=== PATIENT | male | born 1960 | race Caucasian/White ===

== ENCOUNTER → 2018-03-15 | Outpatient (REF) | payer OTHER ==
[2018-03-15 15:58] LABS: C REACTIVE PROTEIN QUANTITATIV 0.64 MG/DL (0.00-0.30)
[2018-03-15 15:58] LABS: RHEUMATOID FACTOR QUANT < 10.0 IU/ML (<15.0)
[2018-03-15 17:26] LABS: ERYTHROCYTE SEDIMENTATION RATE 6 mm/hr (0-20)
[2018-03-25 00:10] LABS: HLA-B27 Negative (.)
== END ==
LOC: M LABDRAW1 10:00
DX: M47.896 Other spondylosis, lumbar region (principal)

== ENCOUNTER → 2020-02-04 | Outpatient (CLI) | payer OTHER ==
[~2020-02-04] MED LIST: ATOR40TA75 PO; DIGO0.253 PO; ECOT81TA5 PO; LISI2.5T2 PO; LOPR1TAB7 PO; NITR0.4S14 SL; NORC1TAB7 PO; SPIR-10 PO; XARE20TA PO
== END ==
LOC: M LABSMTC 08:06
PROVIDERS: ATTEND Anesthesiology
DX: Z01.818 Encounter for other preprocedural examination (principal); Z11.59 Encounter for screening for other viral diseases
CPT/HCPCS: C9803; U0003

== ENCOUNTER 2020-02-07 06:32 | Day surgery (SDC) | payer OTHER ==
[~2020-02-07] VITALS: Ht 170.2 cm; Wt 77.6 kg
[~2020-02-07 06:32] MED LIST changes: +LR 1,000 ML IV SCH; -NORC1TAB7 PO
[2020-02-07] MEDS ORDERED: BUPIVACAINE HCL 0.25% 30ML VIAL As Ordered ONE (08:32)
[2020-02-07] MEDS ORDERED: propofoL 200 MG/20 ML VIAL As Ordered ONE (08:34)
[2020-02-07] MEDS ORDERED: dexameTHASONE 4 MG/ML 1ML VIAL (J1100 PER 1MG) As Ordered ONE (08:34)
[2020-02-07] MEDS ORDERED: ROCURONIUM BROMIDE 50 MG/5 ML VIAL As Ordered ONE ×2 (08:35→09:27)
[2020-02-07] MEDS ORDERED: fentaNYL 100 MCG/2 ML INJECTION (J3010) As Ordered ONE (08:35)
[2020-02-07] MEDS ORDERED: LIDOCAINE 2% 100MG/5ML SDV (FOR ANES.) As Ordered ONE (08:35)
[2020-02-07] MEDS ORDERED: MIDAZOLAM INJ 2MG/2ML VIAL (J2250 PER 1MG) As Ordered ONE (08:36)
[2020-02-07] MEDS ORDERED: ACETAMINOPHEN 1000MG 100ML IV BTL (OFIRMEV) (J0131 PER 10MG) As Ordered ONE (09:11)
[2020-02-07] MEDS ORDERED: SUGAMMADEX SODIUM 500 MG/5 ML VIAL (BRIDION) As Ordered ONE (09:36)
[2020-02-07] MEDS ORDERED: KETOROLAC 60 MG/2 ML VIAL As Ordered ONE (09:36)
[2020-02-07] MEDS ORDERED: ONDANSETRON 4MG/2ML VIAL As Ordered ONE (09:37)
[2020-02-07] MEDS ORDERED: HYDROmorphone HCL 2 MG/ML 1ML VIAL (J1170) As Ordered ONE (09:44)
[2020-02-07] MEDS ORDERED: NORC1TAB7 PO (11:46)
[2020-02-07] MEDS ORDERED: ONDANSETRON 4MG/2ML VIAL IV PRN (12:00)
[2020-02-07] MEDS ORDERED: fentaNYL 100 MCG/2 ML INJECTION (J3010) IV PRN (12:00)
[2020-02-07] MEDS ORDERED: oxyCODONE 5MG TAB PO PRN (12:00)
[2020-02-07] MEDS ORDERED: LR 1,000 ML IV SCH (12:00)
[2020-02-07] MEDS ORDERED: MORPHINE 2 MG/ML 1ML VIAL (J2270) IV PRN (12:00)
[2020-02-07] MEDS ORDERED: METOCLOPRAMIDE INJ 10MG/2ML VIAL (J2765 PER 1) IV PRN (12:00)
[2020-02-07] MEDS ORDERED: NORCO, ANEXSIA 5/325MG TABLET (HYDROcodone/ACETAMINOPHEN) PO PRN (12:15)
[2020-02-07] MEDS ORDERED: ACETAMINOPHEN TAB 650MG DOSE (2X325MG) PO PRN (12:15)
[2020-02-07 13:23] VITALS: BP 128/83
--- NOTE | 2020-02-11 13:41 | RO ---
DATE OF PROCEDURE: 02/07/2020 PREOPERATIVE DIAGNOSIS: Right inguinal hernia. POSTOPERATIVE DIAGNOSIS: Bilateral inguinal hernias. PROCEDURE PERFORMED: Robotic-assisted laparoscopic repair of right and left inguinal hernias utilizing mesh. The mesh utilized on the right was a [employer]ien ProGrip mesh, reference code [id number], lot number [id number]. The mesh utilized on the left was also a [employer]ien ProGrip with the same reference code and the lot number as on the right. SURGEON: Saurabh Pak MD [employer] OFFICER: Patty Sebastian, nurse practitioner, who was required to assist in management of the robot to include placement of the trocars, change of instruments, and insertion and removal of needles and mesh, and she also closed the incisions at the conclusion of the procedure. ANESTHESIA: General. INDICATIONS FOR THE PROCEDURE: The patient is a 59-year-old man who had developed an uncomfortable bulge in the right inguinal area. Examination confirmed a reducible right inguinal hernia. He is now for a robotic-assisted laparoscopic right inguinal herniorrhaphy. OPERATIVE PROCEDURE: The patient was brought to the operating room and placed on the table in a supine position. He was placed under general endotracheal anesthesia. The patient's abdomen, groins, and genitalia were prepped and draped in a sterile fashion. 0.25% Marcaine was infiltrated at each of the trocar sites prior to insertion. A short transverse midline incision was made in the supraumbilical region, and a Veress needle was inserted. After a positive hanging drop test, the abdomen was insufflated with carbon dioxide gas. A 5 mm camera was placed through an 8 mm port, and this was advanced through the abdominal wall without difficulty. Initial examination showed hernia defects on both sides with the right larger than the left. The visualized portions of the liver and stomach and small and large bowel appeared normal. A second port was placed in the right upper quadrant, and a third port was placed in the left upper quadrant. The patient cart of the da Jeana X I robot was brought into position, and the camera port was docked. Prior to docking the robot, the patient was placed into an approximately 15 degree head-down position. Once the camera was inserted, targeting took place in the mid pelvis, and the additional robotic arms were then docked. A forced bipolar and cauterizing scissors were inserted. I then moved to the control console to proceed with the surgery. Initially, the hernias were inspected. They both appeared to be indirect hernias. The one on the right clearly extended significantly further and appeared actually to be a nearly complete hernia. On the left, the hernia clearly extended past the external oblique but not into the scrotum. I made a decision at that point to repair both hernias, starting with the right side which had been the diagnosis side. A peritoneal flap was created beginning at the medial umbilical ligament on the right and extending laterally and inferiorly toward the anterior-superior iliac spine. The peritoneum was peeled away from the overlying abdominal wall. The hernia sac was inverted by peeling this away from the underlying cord structures, which were preserved. The hernia sac had a small tear near its neck, but this was dealt with during the closure. Once the preperitoneal space had been adequately developed, I inspected the hernia defect further. I elected to close the hernia defect, and so a 1-0 Stratafix suture was used beginning at the lateral aspect of the fascial defect and working medially to close the defect to provide better support for the mesh that was to be applied. A Covidien ProGrip mesh 10 x 15 cm was trimmed slightly at the corners and then folded and inserted into the abdomen. This was placed into the preperitoneal space centered over the closed fascial defect. This had an excellent overlap on all sides. The mesh was pressed gently into the soft tissues and held in place very nicely. The peritoneal flap was then closed with a running suture of 2-0 V-Loc absorbable suture. The redundant peritoneum of the hernia sac was folded up over the closure, sealing the small tear in the sac and also helping to complete the closure of the flap. I then moved to the left side. A mirror image type incision was made in the peritoneum, and the preperitoneal space was opened. The hernia sac was smaller and inverted more easily. He was found to have some significant preperitoneal fat, some of which had herniated into the hernia defect. The defect did not appear to require closure on this side. A second piece of mesh was then inserted into the abdomen and placed over the inguinal floor, nicely centered on the fascial defect. The mesh was pressed gently into the soft tissues, and the peritoneal flap was then closed with a running 2-0 V-Loc. A portion of the preperitoneal fat which had been removed from the opening of the hernia on the left was placed in an Endopouch. The patient was returned to a flat position, as the closure of the left peritoneal flap was progressing. The robotic instruments were removed and the robot undocked. The abdomen was deflated. The trocars were removed. The specimen pouch was removed through the right upper quadrant trocar site, and this small amount of fibrofatty tissue was discarded. Patty Sebastian then proceeded to close the skin incisions with buried 4-0 Vicryl and Steri-Strips. Light dressings were applied. The patient tolerated the procedure well without apparent complication. He was awakened in the operating room, extubated, and moved to the recovery room in stable condition.
== END 2020-02-07 14:00 | disposition home or self-care (01) ==
LOC: M SDC 06:32
PROVIDERS: ATTEND Surgery
DX: K40.20 Bilateral inguinal hernia, without obstruction or gangrene, not specified as recurrent (principal); I10 Essential (primary) hypertension; I48.91 Unspecified atrial fibrillation; E78.5 Hyperlipidemia, unspecified; F12.10 Cannabis abuse, uncomplicated; Z79.01 Long term (current) use of anticoagulants; Z79.899 Other long term (current) drug therapy
CPT/HCPCS: 49650; C1781; J0131; J1100; J1170; J1885; J2250; J2405; J3010

== ENCOUNTER → 2022-06-09 | Outpatient (CLI) | payer OTHER ==
[~2022-06-09] MED LIST changes: -LISI2.5T2 PO; +LISI2.5T9 PO; -LR 1,000 ML IV SCH; +NORC1TAB7 PO
[2022-06-09 15:33] LABS: PLATELET COUNT, AUTOMATED 204 10^3/uL (150-450)
[2022-06-09 15:44] LABS: INR 1.05; PROTHROMBIN TIME 13.9 SECONDS (12.5-14.5)
[2022-06-09 15:45] LABS: PARTIAL THROMBOPLASTIN TIME 32.6 SECONDS (24.8-34.2)
== END ==
LOC: M PLALAB 14:31
PROVIDERS: ATTEND Orthopaedic Surgery
DX: M51.16 Intervertebral disc disorders with radiculopathy, lumbar region (principal); Z79.01 Long term (current) use of anticoagulants

== ENCOUNTER → 2023-08-13 | Outpatient (CLI) | payer OTHER | LOC: M RAD 11:35 | PROVIDERS: ATTEND Registered Nurse | DX: N50.89 Other specified disorders of the male genital organs (principal); K40.90 Unilateral inguinal hernia, without obstruction or gangrene, not specified as recurrent; N43.3 Hydrocele, unspecified ==

== ENCOUNTER 2024-06-28 14:02 | Emergency (ER) | payer OTHER ==
[~2024-06-28] VITALS: Ht 170.2 cm; Wt 89.5 kg
[2024-06-28] MEDS ORDERED: DABIGATRAN (14:24)
[2024-06-28 16:52] VITALS: TEMP 98.1; O2SAT 96
[2024-06-28] MEDS: LIDOCAINE 1% MDV 20ML VIAL SC ONE (17:15)
[2024-06-28] MEDS ORDERED: CEPH500C PO (18:52)
[2024-06-28] MEDS: CEPHALEXIN 500 MG CAP PO ONE (18:56)
[2024-06-28] MEDS: BACITRACIN OINTMENT 30GM TUBE TOP ONE (18:56)
[2024-06-28] MEDS: BOOSTRIX VACCINE (TETANUS/DIPHTH/ACEL. PERTUSSIS) 0.5ML SYR IM.IMMUN ONE (18:57)
[2024-06-28 19:14] VITALS: BP 150/93
== END 2024-06-28 19:19 | disposition home or self-care (01) ==
LOC: M ED 14:02
DX: S62.521B Displaced fracture of distal phalanx of right thumb, initial encounter for open fracture (principal); W23.2XXA Caught, crushed, jammed or pinched between a moving and stationary object, initial encounter; I10 Essential (primary) hypertension; F12.10 Cannabis abuse, uncomplicated; Z86.79 Personal history of other diseases of the circulatory system; Y92.9 Unspecified place or not applicable; Y93.89 Activity, other specified; Y99.0 Civilian activity done for income or pay; Z23 Encounter for immunization; Z79.82 Long term (current) use of aspirin; Z79.811 Long term (current) use of aromatase inhibitors; Z79.2 Long term (current) use of antibiotics; Z79.899 Other long term (current) drug therapy

== ENCOUNTER → 2024-07-07 | Outpatient (CLI) | payer OTHER ==
[~2024-07-07] MED LIST changes: +CEPH500C PO; +DABIGATRAN
== END ==
LOC: M SOG 07:57
PROVIDERS: ATTEND Physician Assistant
DX: S62.521A Displaced fracture of distal phalanx of right thumb, initial encounter for closed fracture (principal); Y93.9 Activity, unspecified; Y92.9 Unspecified place or not applicable

== ENCOUNTER → 2024-08-02 | Outpatient (CLI) | payer OTHER | LOC: M SOG 07:51 | PROVIDERS: ATTEND Physician Assistant | DX: S62.521 Displaced fracture of distal phalanx of right thumb (principal); M19.041 Primary osteoarthritis, right hand ==